=== PATIENT | male | born 1945 | race Caucasian/White ===

== ENCOUNTER 2016-08-30 12:30 | Day surgery (SDC) | payer MEDICARE ==
[~2016-08-30] VITALS: Ht 170.2 cm; Wt 56.9 kg
[~2016-08-30 12:30] MED LIST: AMLODIPINE10 MG PO; BETAPACE 80MG80 MG PO; LIPITOR20 MG PO; LISINOPRIL40 MG PO; MULTIPLE VITAMI1 CAP PO; NORVASC 10MG10 MG PO; SOTALOL80 MG PO; ZESTRIL40 MG PO
[2016-08-30 13:37] VITALS: BP 186/72; PULSE 69; TEMP 97.7
[2016-08-30 16:44] VITALS: BP 168/81; PULSE 76; TEMP 97.6
[2016-08-30 17:00] VITALS: BP 163/72; PULSE 69
[2016-08-30 17:39] VITALS: BP 136/62; PULSE 72
== END 2016-08-30 17:35 | disposition home or self-care (01) ==
LOC: SDCO 12:30
DX: K22.2 Esophageal obstruction (principal); R13.10 Dysphagia, unspecified; K21.9 Gastro-esophageal reflux disease without esophagitis; K22.70 Barrett's esophagus without dysplasia; I10 Essential (primary) hypertension; C34.90 Malignant neoplasm of unspecified part of unspecified bronchus or lung
CPT/HCPCS: OP; C1726; J2250; J3010; J7030

== ENCOUNTER 2018-01-07 13:27 | Day surgery (SDC) | payer MEDICARE ==
[~2018-01-07] VITALS: Ht 170.2 cm; Wt 56.8 kg
[~2018-01-07 13:27] MED LIST changes: +BETAPACE 80MG80 MG PEG; -BETAPACE 80MG80 MG PO
[2018-01-07 14:00] VITALS: BP 178/69; PULSE 58
[2018-01-07 14:10] VITALS: BP 178/69; PULSE 60; TEMP 97.9
[2018-01-07 14:15] VITALS: BP 153/63; PULSE 60
[2018-01-07 14:45] VITALS: BP 191/72; PULSE 59
== END 2018-01-07 15:00 | disposition home or self-care (01) ==
LOC: SDCO 13:27
DX: K94.23 Gastrostomy malfunction (principal)